=== PATIENT | male | born 1980 | race Caucasian/White ===

== ENCOUNTER → 2020-07-16 09:23 | Outpatient (CLI) | payer OTHER, MEDICAID, SELFPAY ==
--- NOTE | 2020-07-16 09:28 | DI.RAD.S_ITS ---
PROCEDURE: XR WRIST LT MIN 3V INDICATIONS: LT WRIST PAIN TECHNIQUE: 4 views of the wrist were acquired. COMPARISON: None. FINDINGS: Bones: No fractures or dislocations. No suspicious bony lesions. First CMC and triscaphe joint degeneration Soft tissues: No suspicious soft tissue calcifications. IMPRESSION: Mild degenerative changes. If the patient's pain or other symptoms persist, consider further evaluation with MRI Dictated by: Lc Gutierrez M.D. on 07/16/2020 at 12:15 Approved by: Lc Gutierrez M.D. on 07/16/2020 at 12:17
== END ==
PROVIDERS: PCP Family Medicine; Referring Provider Family Medicine; Visit Provider Family Medicine
DX: M25.532 Pain in left wrist (principal); M18.12 Unilateral primary osteoarthritis of first carpometacarpal joint, left hand; M19.032 Primary osteoarthritis, left wrist
CPT/HCPCS: 73110

== ENCOUNTER → 2020-11-19 16:38 | Outpatient (CLI) | payer OTHER, MEDICAID, SELFPAY ==
[2020-11-19 17:13] LABS: COVID19 -Nasal RAPID Negative (Negative)
== END ==
PROVIDERS: PCP Family Medicine; Visit Provider Physician Assistant
DX: Z20.822 Contact with and (suspected) exposure to COVID-19 (principal); J02.9 Acute pharyngitis, unspecified; R53.83 Other fatigue
CPT/HCPCS: 87635

== ENCOUNTER → 2020-12-02 12:14 | Outpatient (CLI) | payer OTHER, MEDICAID, SELFPAY ==
--- NOTE | 2020-12-02 | DI.CT.S_ITS ---
PROCEDURE: CT HEAD/BRAIN WO CON INDICATIONS: Tinnitus, left ear TECHNIQUE: Noncontrast 4.5 mm thick angled axial sections acquired from the foramen magnum to the vertex, with coronal and sagittal reformats. For radiation dose reduction, the following was used: automated exposure control, adjustment of mA and/or kV according to patient size. COMPARISON: [facility], CT, SINUS SCREEN WO CONTRAST, 04/15/2016, 12:58. FINDINGS: Image quality: Excellent. CSF spaces: Basal cisterns are patent. No extra-axial fluid collections. Ventricles are normal in size and shape. Brain: There is a large mass expanding the sella turcica in addition to eroding the floor of the sella with inferior extension into the nasopharynx. The mass is produced displacement and remottling of the sphenoid sinuses and ethmoid air cells as well as the nasal septum, indicating longstanding presence. The mass measures approximately 4.3 x 3.2 x 4.3 centimeters AP LR CC dimension, slightly increased in size from March [address] Skull and face: Calvarium and visualized facial bones are intact, without suspicious lesions. Sinuses: Visualized sinuses and mastoids are clear. 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 Etiology of this lesion is unknown. An MRI of the pituitary gland with without IV contrast would be recommended if not already performed recently or if diagnosis remains uncertain. No obvious cause for tinnitus. Further workup could be obtained with a temporal bone CT and an MRI of the internal auditory canals, if clinically warranted. Dictated by: Tushar Chen M.D. on 12/02/2020 at 12:27 Approved by: Tushar Chen M.D. on 12/02/2020 at 12:36
== END ==
PROVIDERS: PCP Family Medicine; Referring Provider Family Medicine; Visit Provider Family Medicine
DX: H93.12 Tinnitus, left ear (principal); R22.0 Localized swelling, mass and lump, head
CPT/HCPCS: 70450

== ENCOUNTER → 2020-12-17 12:55 | Outpatient (CLI) | payer OTHER, MEDICAID, SELFPAY ==
--- NOTE | 2020-12-17 | DI.MRI.S_ITS ---
PROCEDURE: MR BRAIN (PITUITARY) WWO CON INDICATIONS: Benign neoplasm of pituitary gland TECHNIQUE: Noncontrast sagittal and axial FLAIR, axial gradient echo, axial diffusion and ADC through the brain. Thin-slice sagittal and coronal T1 spin echo, coronal T2 fast spin echo through the pituitary. After the administration contrast, optional dynamic coronal T1 spin echo, thin-slice coronal and sagittal T1 spin echo images through the pituitary fossa; axial T1 spin echo with fat saturation through the brain. COMPARISON: [facility], CT, CT HEAD/BRAIN WO CON, 12/02/2020, 12:20. [facility], CT, SINUS SCREEN WO CONTRAST, 04/15/2016, 12:58. FINDINGS: Image quality: Excellent. Pituitary Gland: As previously demonstrated, there is a large expansile CSF signal lesion seen involving the pituitary fossa, which extends into the sphenoid sinus and the posterior nasal cavity. This abnormal cystic prominence measures at least 4.4 x 2.8 by 2.6 cm. There is associated regional bony remodeling. The normal pituitary tissue is believed to be along the posterior/left aspect of the expansile cystic lesion. No abnormal enhancement is detected. The pituitary stock is slightly deviated to the left. The ventral forebrain and the optic chiasm are unremarkable. CSF Spaces: Ventricles are normal in size and shape. Basal cisterns are patent. No extra-axial fluid collections. Brain: The anterior medial frontal lobes descend inferiorly. No intracranial bleeds or mass effects. No abnormal intracranial enhancement. Atkins-white matter interface is intact. Diffusion weighted images demonstrate no acute ischemic insults. Brainstem is normal. Normal intravascular flow voids are present. Skull and face: Calvarial marrow is normal in signal. The orbits are deviated laterally. Orbits otherwise appear normal. Sinuses: Sinuses and mastoids are clear. IMPRESSION: There is again seen a large fluid-filled, expansile lesion extending inferiorly from the pituitary fossa into the sphenoid sinus and to the posterior nasal cavity. The appearance is similar to the [address] examination. The appearance is nonspecific. 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 The anterior medial frontal lobes both descend inferiorly and the orbits are displaced laterally. ENT and/or neurosurgery consultation is recommended. Dictated by: Deepak Herrera M.D. on 12/17/2020 at 14:06 Transcribed by: SUDHA on 12/17/2020 at 14:14 Approved by: Deepak Herrera M.D. on 12/17/2020 at 16:34
== END ==
PROVIDERS: PCP Family Medicine; Referring Provider Family Medicine; Visit Provider Family Medicine
DX: G93.9 Disorder of brain, unspecified (principal); D35.2 Benign neoplasm of pituitary gland
CPT/HCPCS: 70553

== ENCOUNTER → 2022-02-11 14:49 | Outpatient (CLI) | payer OTHER, MEDICAID, SELFPAY ==
--- NOTE | 2022-02-11 | DI.MRI.S_ITS ---
PROCEDURE: MR HEAD/BRAIN WO/W CON INDICATIONS: PANHYPOPITUITARISM TECHNIQUE: Noncontrast axial T1 spin echo, axial T2 fast spin echo, sagittal and axial FLAIR, coronal T2 fast spin echo, axial gradient echo, axial diffusion and ADC through the brain. After the administration of contrast, axial and coronal and sagittal 3D VIBE or T1 spin echo with fat saturation through the brain. COMPARISON: [facility], MR, MR BRAIN (PITUITARY) WWO CON, 12/17/2020, 13:35. [facility], CT, SINUS SCREEN WO CONTRAST, 04/15/2016, 12:58. 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 Nevertheless, the pituitary gland and infundibulum is absent. The floor of the 3rd ventricle including hypothalamus is stretched into the encephalocele. The osseous orbits are displaced laterally, thinning the optic nerves. 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 No change from the prior exam Dictated by: Edgar Espinosa M.D. on 02/11/2022 at 18:25 Approved by: Edgar Espinosa M.D. on 02/11/2022 at 18:41
== END ==
PROVIDERS: PCP Family Medicine; Referring Provider Internal Medicine Endocrinology, Diabetes & Metabolism; Visit Provider Internal Medicine Endocrinology, Diabetes & Metabolism
DX: Q01.8 Encephalocele of other sites (principal); E23.0 Hypopituitarism; E23.2 Diabetes insipidus; E27.49 Other adrenocortical insufficiency; E03.8 Other specified hypothyroidism
CPT/HCPCS: 70553; A9579

== ENCOUNTER → 2022-10-15 12:53 | Outpatient (CLI) | payer OTHER, MEDICAID, SELFPAY ==
--- NOTE | 2022-10-15 | DI.CT.S_ITS ---
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 Additional 1.5 mm axial sections acquired through the true vocal cords. 1 mm thick coronal reformats were generated. For radiation dose reduction, the following was used: automated exposure control. COMPARISON: None. FINDINGS: Image quality: Excellent. Vocal cords: Thickening of the true and false vocal folds and loss of the right laryngeal ventricle. Neck spaces: The oropharynx, nasopharynx, and pharynx demonstrate no mucosal lesions. The pyriform sinuses, epiglottis, vallecular, and tongue base all appear normal. There is mild thickening and loss of the right laryngeal ventricle. There is a large cystic structure within the left supraclavicular neck measuring 5.0 x 4.6 x 5.1 cm (TV by AP by cc). The structure is directly adjacent to the thyroid and extending inferiorly. The cystic structure exerts mass effect resulting in deviation of the trachea to the right. No tracheal narrowing.. Lymph nodes: No enlarged lymph nodes seen throughout the neck. Vessels: Visualized vasculature appears patent. Glands: The parotid and submandibular glands appear normal. Thyroid gland is atrophic, otherwise unremarkable. Miscellaneous: Visualized brain appear unremarkable. Lung apices appear clear. Superficial soft tissues appear normal. Bones: No suspicious bony lesions. Visualized sinuses and mastoids appear unremarkable. IMPRESSION: 1. Large cystic structure within the left neck just inferior to the thyroid and exerting mass effect and deviating the trachea to the right without tracheal narrowing. 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 Malignancy is thought to be less likely, however follow-up is recommended. 2. There is mild thickening of the right true and false vocal cords and partial loss of the right laryngeal ventricle, consider direct visualization for further evaluation. Dictated by: Juan Carlos Rothman M.D. on 10/15/2022 at 15:51 Approved by: Juan Carlos Rothman M.D. on 10/15/2022 at 16:04
[2022-10-15 13:25] LABS: Estimated Glomerular Filt Rate > 60 mL/min (>60)
== END ==
PROVIDERS: Radiology Diagnostic Radiology; PCP Family Medicine; Referring Provider Otolaryngology; Visit Provider Otolaryngology
DX: J38.01 Paralysis of vocal cords and larynx, unilateral (principal); R49.0 Dysphonia; Q01.8 Encephalocele of other sites
CPT/HCPCS: 36415; 70491; 82565; Q9967

== ENCOUNTER → 2023-02-24 08:29 | Outpatient (CLI) | payer OTHER, MEDICAID, SELFPAY ==
--- NOTE | 2023-02-24 08:30 | DI.MRI.S_ITS ---
PROCEDURE: MR BRAIN (PITUITARY) WWO CON INDICATIONS: Hypopituitarism TECHNIQUE: Noncontrast sagittal and axial FLAIR, axial gradient echo, axial diffusion and ADC through the brain. Thin-slice sagittal and coronal T1 spin echo, coronal T2 fast spin echo through the pituitary. After the administration contrast, optional dynamic coronal T1 spin echo, thin-slice coronal and sagittal T1 spin echo images through the pituitary fossa; axial and coronal and sagittal T1 spin echo with fat saturation through the brain. COMPARISON: [facility], CT, SINUS SCREEN WO CONTRAST, 04/15/2016, 12:58. [facility], CT, CT SOFT TISSUE NECK W CON, 10/15/2022, 14:23. [facility], MR, MR HEAD/BRAIN WO/W CON, 02/11/2022, 14:57. [facility], CT, CT HEAD/BRAIN WO CON, 12/02/2020, 12:20. [facility], MR, MR BRAIN (PITUITARY) WWO CON, 12/17/2020, 13:35. FINDINGS: Image quality: Excellent. There is again seen a defect involving the anterior skull base. There is a cystic and 7 seal extending inferiorly through the expected location of the pituitary fossa into the nasal cavity. The pituitary tissue itself is not well seen. No solid masses are seen. The optic chiasm is not well seen on this study and is believed to be inferiorly deviated. CSF Spaces: Ventricles are normal in size and shape. Basal cisterns are patent. No extra-axial fluid collections. Brain: No intracranial bleeds or mass effects. No abnormal intracranial enhancement. Atkins-white matter interface is intact. Diffusion weighted images demonstrate no acute ischemic insults. Brainstem is normal. Normal intravascular flow voids are present. Skull and face: Craniotomy change can be seen anteriorly. Calvarial marrow is normal in signal. The orbits are displaced laterally. Sinuses: Sinuses and mastoids are clear. The nasal septum is not well seen. 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 No suspicious solid masses are seen. The pituitary tissue is not well seen on this study. Dictated by: Deepak Herrera M.D. on 02/24/2023 at 12:25 Approved by: Deepak Herrera M.D. on 02/24/2023 at 12:33
== END ==
PROVIDERS: PCP Family Medicine; Referring Provider Family Medicine; Visit Provider Family Medicine
DX: Q01.8 Encephalocele of other sites (principal); E23.0 Hypopituitarism
CPT/HCPCS: 70553; A9579

== ENCOUNTER → 2024-04-30 09:10 | Outpatient (CLI) | payer OTHER, SELFPAY ==
--- NOTE | 2024-04-30 09:12 | DI.CT.S_ITS ---
PROCEDURE: CT SOFT TISSUE NECK W CON INDICATIONS: NECK MASS TECHNIQUE: After the administration of intravenous contrast, 3.0 mm axial sections acquired from the sella to the aortic arch. Additional oblique axial 3.0 mm sections acquired through the pharynx. 3 mm thick coronal and sagittal reformats were generated. For radiation dose reduction, the following was used: automated exposure control. COMPARISON: [facility], CT, CT SOFT TISSUE NECK W CON, 10/15/2022, 14:23. FINDINGS: Image quality: Excellent. Lymph nodes: No enlarged lymph nodes seen throughout the neck. Vessels: Visualized vasculature appears patent. Neck spaces: Significant decreased size of cystic structure just inferior to the left thyroid lobe with small residual cyst measuring 2.0 x 1.4 cm (2/57). No mass effect. The oropharynx, nasopharynx, and pharynx demonstrate no mucosal lesions. The vocal cords, false vocal cords, pyriform sinuses, epiglottis, vallecula, and tongue base all appear normal. Extramucosal spaces appear unremarkable. Glands: The parotid and submandibular glands appear normal. Thyroid gland is atrophic, otherwise normal. Miscellaneous: Visualized brain and orbits appear normal. Postsurgical changes likely from prior pituitary surgery are incompletely evaluated. Please refer to prior MRI brain pituitary protocol. Lung apices appear clear. Superficial soft tissues appear normal. Bones: No suspicious bony lesions. Visualized sinuses and mastoids appear unremarkable. IMPRESSION: Significant decreased size of cystic structure just inferior to the left thyroid with small residual cyst measuring 2.0 x 1.4 cm. Resolution of mass effect. Dictated by: Juan Carlos Rothman M.D. on 04/30/2024 at 11:41 Approved by: Juan Carlos Rothman M.D. on 04/30/2024 at 11:46
[2024-04-30 09:38] LABS: Estimated Glomerular Filt Rate > 60 mL/min (>60)
== END ==
PROVIDERS: Radiology Diagnostic Radiology; PCP Family Medicine; Referring Provider Otolaryngology; Visit Provider Otolaryngology
DX: R22.1 Localized swelling, mass and lump, neck (principal)
CPT/HCPCS: 36415; 70491; 82565; Q9967